=== PATIENT | female | born 2005 | race African-American/Black ===

== ENCOUNTER 2023-10-01 19:25 | Inpatient (IN) | payer OTHER ==
[~2023-10-01] VITALS: Ht 167.6 cm; Wt 75.7 kg
[2023-10-01 20:17] LABS: HEMOGLOBIN 11.8 g/dl (12.0-15.5); MEAN CORPUSCULAR HEMOGLOBIN 25.9 pg (27.0-33.0); MEAN CORPUSCULAR HGB CONC 33.7 g/dl (32.0-36.5); MEAN CORPUSCULAR VOLUME 76.9 fl (80.0-96.0); PLATELET COUNT, AUTOMATED 295 10^3/uL (150-450); RED BLOOD COUNT 4.55 10^6/uL (4.00-5.40); WHITE BLOOD COUNT 6.5 10^3/uL (4.0-10.0)
[2023-10-01 20:45] LABS: ETHYL ALCOHOL (ETHANOL) < 0.003 % (0.000-0.010)
[2023-10-01 20:47] LABS: ALBUMIN 3.5 G/DL (3.2-5.2); ALKALINE PHOSPHATASE 47 U/L (46-116); ALT/SGPT 11 U/L (7.0-40); AST/SGOT 8 U/L (<34); BILIRUBIN,DIRECT 0.2 MG/DL (<0.4); BILIRUBIN,TOTAL 0.4 MG/DL (0.3-1.2); BLOOD UREA NITROGEN 8 MG/DL (9-23); CALCIUM LEVEL 9.4 MG/DL (8.5-10.1); CARBON DIOXIDE LEVEL 24 MMOL/L (20-31); CHLORIDE LEVEL 108 MMOL/L (98-107); CREATININE FOR GFR 0.66 MG/DL (0.55-1.30); GLUCOSE, FASTING 92 MG/DL (60-100); POTASSIUM SERUM 3.7 MMOL/L (3.5-5.1); SALICYLATE LEVEL < 3.0 MG/DL (<30); SODIUM LEVEL 139 MMOL/L (136-145); TOTAL PROTEIN 7.4 G/DL (5.7-8.2)
[2023-10-01 20:50] LABS: THYROID STIMULATING HORMONE 4.479 uIU/ML (0.48-4.17)
[2023-10-01 21:01] LABS: AMPHETAMINES LEVEL URINE NEGATIVE (NEGATIVE); BARBITURATES URINE NEGATIVE (NEGATIVE); BENZODIAZEPINES URINE NEGATIVE (NEGATIVE); CANNABINOIDS URINE NEGATIVE (NEGATIVE); COCAINE METABOLITE URINE NEGATIVE (NEGATIVE); METHADONE URINE NEGATIVE (NEGATIVE); OPIATES URINE NEGATIVE (NEGATIVE); PHENCYCLIDINE URINE NEGATIVE (NEGATIVE)
[2023-10-01 21:05] LABS: HCG, SERUM QUALITATIVE NEGATIVE (NEGATIVE)
[2023-10-01] MEDS ORDERED: HOME MED LIST COMPLETE! XX SCH (22:20)
[2023-10-02] MEDS ORDERED: diphenhydrAMINE 25MG CAP PO PRN (13:45)
[2023-10-02] MEDS ORDERED: MAALOX 30 ML SUSP *UDC PO PRN (13:45)
[2023-10-02] MEDS ORDERED: MOM 30ML SUSPENSION UDC PO PRN (13:45)
[2023-10-02] MEDS ORDERED: traZODone 50 MG TAB PO PRN (13:45)
[2023-10-02] MEDS ORDERED: IBUPROFEN 400MG TAB PO PRN (13:45)
[2023-10-02] MEDS ORDERED: ACETAMINOPHEN TAB 650MG DOSE (2X325MG) PO PRN (13:45)
[2023-10-02 15:00] VITALS: BP 126/65; TEMP 98; O2SAT 97
[2023-10-03 06:45] VITALS: BP 113/58; TEMP 98.2; O2SAT 97
[2023-10-03 16:39] VITALS: BP 124/60; TEMP 97.3; O2SAT 100
[2023-10-04 06:34] VITALS: BP 124/79; TEMP 97.4; O2SAT 100
[2023-10-04 08:36] LABS: PERCENT SATURATION 10.9 % (13.2-45.0)
[2023-10-04 08:38] LABS: FERRITIN 13.9 NG/ML (7.3-270.7)
[2023-10-04 16:49] VITALS: BP 126/70; TEMP 97.9; O2SAT 96
[2023-10-05 06:17] VITALS: BP 122/73; TEMP 97.3; O2SAT 98
[2023-10-05 16:16] VITALS: BP 108/58; TEMP 97.9; O2SAT 98
[2023-10-06 06:14] VITALS: BP 128/69; TEMP 98.3; O2SAT 100
== END 2023-10-06 10:23 | disposition home or self-care (01) | DRG 881 ==
LOC: M ED 19:25 → M ED INP 10-02 13:41 → M PSY 10-02 15:02
PROVIDERS: ADMIT Student in an Organized Health Care Education/Training Program; ATTEND Psychiatry & Neurology Child & Adolescent Psychiatry
DX: F43.21 Adjustment disorder with depressed mood (principal); R45.851 Suicidal ideations; R45.850 Homicidal ideations; Z56.6 Other physical and mental strain related to work